=== PATIENT | male | born 1960 ===

== ENCOUNTER → 2018-06-18 | Outpatient (CLI) | payer OTHER ==
[~2018-06-18] MED LIST: AMLO-127 PO; LOSA-54 PO; NICO-306 BC; PANT40TA65 PO
[2018-06-18 09:24] LABS: PLATELET COUNT, AUTOMATED 170 K/uL (150-450)
[2018-06-18 09:50] LABS: LDL CHOLESTEROL 75 mg/dl
== END ==
LOC: LAB 09:01
PROVIDERS: ATTEND Internal Medicine
DX: K21.9 Gastro-esophageal reflux disease without esophagitis (principal); I10 Essential (primary) hypertension
CPT/HCPCS: 36415; 81001; 82040; 82247; 82310; 82374; 82435; 82465; 82565; 82607; 82746; 82947; 83718; 84075; 84132; 84153; 84155; 84295; 84443; 84450; 84460; 84478; 84520; 85025